=== PATIENT | female | born 1970 | race Caucasian/White ===

== ENCOUNTER → 2019-06-17 | Outpatient (CLI) | payer OTHER ==
[~2019-06-17] MED LIST: CIPROFLOXACIN500 M3 PO; OS-CAL 500+D C1 EACH PO; PHENAZOPYRIDINE PO; PREDNISONE 20 M20 M1 PO; VENTOLIN HFA 1818 GM INH
== END ==
LOC: M.RAD 12:39
DX: J45.41 Moderate persistent asthma with (acute) exacerbation (principal); J15.8 Pneumonia due to other specified bacteria